=== PATIENT | male | born 1960 | race Caucasian/White ===

== ENCOUNTER 2017-02-28 23:25 | Emergency (ER) | payer OTHER ==
[~2017-02-28 23:25] MED LIST: ACETAMINOPHEN/H1 TAB PO; DOXYCYCLINE100 M3; IBUPROFEN800 MG; KEFLEX500 MG PO; LOSARTAN POTASS50 MG PO; MULTIVITAMIN1 TAB PO; PROAIR HFA0.09 MG/Ac INH; TRIAMCINOL0.1 %/453 TOP
--- NOTE | 2017-02-28 23:32 | ED GENERAL ADULT ---
History of Present Illness General Chief Complaint: General Adult Stated Complaint: ? FB (?MEAT) STUCK IN THROAT PER PT Source: patient Exam Limitations: no limitations Vital Signs & Intake/Output Vital Signs & Intake/Output Vital Signs Date Time Temp Pulse Resp B/P B/P Pulse O2 O2 Flow FiO2 Mean Ox Delivery Rate 03/01 0101 97.8 69 18 148/82 98 Room Air 03/01 0020 Room Air 02/28 2347 97.6 68 18 154/84 98 Room Air Allergies Coded Allergies: acetaminophen (From PERCOCET) (Mild, ITCHING 02/28/17) doxycycline (Mild, NAUSEA 02/28/17) oxycodone (From PERCOCET) (Mild, ITCHING 02/28/17) Reconcile Medications Albuterol Sulfate (Proair Hfa) 0.09 MG/Actuation MARY 1-2 PUFF INH Q4-6 PRN PRN ASTHMA (Reported) HYDROCODONE/ACETAMINOPHEN (Hydrocodon-Acetaminophen 5-325) 1 EACH TABLET 1-2 TAB PO Q4-6 PRN PRN PAIN SCALE 5-7 Losartan Potassium 50 MG TABLET 1 TAB PO DAILY BP (Reported) Multivitamin (Multiple Vitamins) 1 EACH TABLET 1 TAB PO DAILY SUPPLEMENT ( Reported) Triage Nurses Notes Reviewed? yes Onset: Abrupt Duration: hour(s): Timing: recent history Injury Environment: home Severity: moderate Modifying Factors: Worsens With: other (UNABLE TO HOLD DOWN FLUIDS). Associated Symptoms: SPITTING UP FLUIDS AFTER HE DRINKS HPI: 56-year-old gentleman presents with the sensation of food impaction in his distal esophagus. He states that he was eating pork. He felt the pork get stuck in his esophagus. This occurred around dinner time. Since then he has been spitting up water. He is also had difficulty swallowing his secretions. He has no fever chills chest pain shortness of breath. He is otherwise well and has no other concerns. Past History Medical History Any Pertinent Medical History? 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 No Review of Systems Review of Systems Constitutional: Reports: no symptoms. EENTM: Reports: no symptoms. Respiratory: Reports: no symptoms. Cardiovascular: Reports: no symptoms. GI: Reports: no symptoms. Genitourinary: Reports: no symptoms. Musculoskeletal: Reports: no symptoms. Skin: Reports: no symptoms. Neurological/Psychological: Reports: no symptoms. Hematologic/Endocrine: Reports: no symptoms. Immunologic/Allergic: Reports: no symptoms. All Other Systems: Reviewed and Negative Physical Exam Physical Exam General Appearance: well developed/nourished, mild distress Head: atraumatic, normal appearance Eyes: Bilateral: normal appearance. Ears, Nose, Throat: normal pharynx, normal ENT inspection Neck: normal inspection, supple, full range of motion Respiratory: normal breath sounds, chest non-tender, no respiratory distress, quiet respiration, lungs clear Cardiovascular: regular rate/rhythm Gastrointestinal: normal bowel sounds, soft, non-tender Back: normal inspection Extremities: normal inspection, normal capillary refill, normal range of motion Neurologic/Psych: no motor/sensory deficits, awake, alert, oriented x 3 Skin: intact, normal color, warm/dry Core Measures ACS in differential dx? No CVA/TIA Diagnosis: No Severe Sepsis Present: No Septic Shock Present: No Progress Differential Diagnoses I considered the following diagnoses in my evaluation of the patient: Esophageal food impaction versus foreign body versus other Plan of Care: Patient given glucagon 1 mg IV. I checked upon patient subsequently at 15 minute intervals. After approximately one hour, he was able to swallow fluids without problem. The sensation of the foreign body had improved dramatically. He was able to ambulate without problem. He never vomited during his entire ED stay. I believe she is safe for discharge. She wishes to go home. I referred him to gastroenterology. Initial ED EKG: none Departure Departure Disposition: HOME OR SELF CARE Condition: Stable Clinical Impression Primary Impression: Esophageal obstruction due to food impaction Referrals: PATIENT HAS NO PRIMARY CARE DR (PCP/Family) Departure Forms: Customer Survey General Discharge Information Comments 03/01/17, 0:51.... PT TOLERATING FLUIDS AFTER GLUCAGON.... NO VOMITING/NO SPITTING UP... PT FEELS COMFORTABLE GOING HOME... PT REFERRED TO GI FOR FOLLOW UP. Critical Care Note Critical Care Note Critical Care Time: non-applicable
[2017-03-01 01:01] VITALS: BP 148/82
[2017-03-01] MEDS ORDERED: LOSARTAN POTASS25 M1 PO (13:04)
== END 2017-03-01 01:01 ==
LOC: ERH 23:25
DX: K22.2 Esophageal obstruction (principal)
CPT/HCPCS: 96374; J1610

== ENCOUNTER 2017-03-01 09:16 | Emergency (ER) | payer OTHER ==
[~2017-03-01] VITALS: Ht 175.3 cm; Wt 88.0 kg
--- NOTE | 2017-03-01 10:11 | ED GENERAL ADULT ---
History of Present Illness General Chief Complaint: General Adult Stated Complaint: SEEN HERE LAST PM FOR FB IN THROAT Source: patient, old records Exam Limitations: no limitations Vital Signs & Intake/Output Vital Signs & Intake/Output Vital Signs Date Time Temp Pulse Resp B/P B/P Pulse O2 O2 Flow FiO2 Mean Ox Delivery Rate 03/01 1507 95.4 68 18 135/67 99 Room Air 03/01 1300 98.9 74 18 146/70 99 Room Air 03/01 0925 99.4 75 15 148/77 99 Room Air Room Air Allergies Coded Allergies: acetaminophen (From PERCOCET) (Mild, ITCHING 03/01/17) doxycycline (Mild, NAUSEA 03/01/17) oxycodone (From PERCOCET) (Mild, ITCHING 03/01/17) Reconcile Medications Albuterol Sulfate (Proair Hfa) 0.09 MG/Actuation MARY 1-2 PUFF INH Q4-6 PRN PRN ASTHMA (Reported) HYDROCODONE/ACETAMINOPHEN (Hydrocodon-Acetaminophen 5-325) 1 EACH TABLET 1-2 TAB PO Q4-6 PRN PRN PAIN SCALE 5-7 Losartan Potassium 50 MG TABLET 1 TAB PO DAILY BP (Reported) Losartan Potassium 25 MG TABLET 25 MG PO DAILY HYPERTENSION (Reported) Multivitamin (Multiple Vitamins) 1 EACH TABLET 1 TAB PO DAILY SUPPLEMENT ( Reported) Triage Note: PT TO ED C/C OF PIECE OF MEAT STUCK IN THROAT SINCE LAST NIGHT. SEEN HERE LAST NIGHT FOR SAME AND WAS CLEARED FOR DC. PT RETURNS WITH SAME COMPLAINTS, BUT UNABLE TO KEEP FOOD OR DRINK DOWN. DENIES DIFFICULTY BREATHING. Triage Nurses Notes Reviewed? yes Onset: Abrupt Duration: hour(s):, constant, continues in ED Timing: single episode today Severity: moderate HPI: Patient presents for evaluation of "something stuck in my throat". Patient states he was evaluated last night for what was likely a piece of pork stuck in the esophagus. He states that he was given a medication and then was able to drink water once but then with a subsequent attempt vomited. He states he tried drinking fluids again today but states it "came back up". He has a foreign body sensation in the throat and is concerned that there is something still there. Past History Travel History Traveled to [place] past 21 day No Medical History Any Pertinent Medical History? 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 No Review of Systems Review of Systems Constitutional: Reports: no symptoms. EENTM: Reports: no symptoms. Respiratory: Reports: no symptoms. Cardiovascular: Reports: no symptoms. GI: Reports: see HPI. Genitourinary: Reports: no symptoms. Musculoskeletal: Reports: no symptoms. Skin: Reports: no symptoms. Neurological/Psychological: Reports: no symptoms. Hematologic/Endocrine: Reports: no symptoms. Immunologic/Allergic: Reports: no symptoms. All Other Systems: Reviewed and Negative Physical Exam Physical Exam General Appearance: SEE BELOW Comments: Gen.: Well-nourished, well-developed, no acute respiratory distress. Head: Normocephalic, atraumatic. Eyes: Normal inspection bilaterally Ears: Normal inspection bilaterally Nose: Normal inspection Throat/mouth : Moist mucosa Neck: Supple, full range of motion, no goiter Heart: Regular rate and rhythm, no murmurs rubs or gallops Lungs: Clear to auscultation bilaterally with normal air entry Chest: Nontender Back: Normal range of motion Abdomen: Soft, nontender, nondistended, normal bowel sounds Extremities: Normal range of motion grossly, equal radial pulses, no cyanosis clubbing or edema Neurologic: Cranial nerves grossly intact, speech is clear Skin: warm and dry Psychiatric: Calm, cooperative, no apparent delusions or hallucinations Core Measures ACS in differential dx? No CVA/TIA Diagnosis: No Severe Sepsis Present: No Septic Shock Present: No Progress Differential Diagnoses I considered the following diagnoses in my evaluation of the patient: Esophageal food impaction, Zenker's diverticulum, esophageal cancer, dysmotility syndrome Plan of Care: Orders Procedure Date/time Status PATHOLOGY SPECIMEN 03/01 1516 Active Saline Lock 03/01 1226 Active Initial ED EKG: none Comments: 03/01/2017 12:25:50 PM I have updated Nathan on his CAT scan report and have discussed this case with Dr. Albert. Dr. Albert will perform an endoscopy shortly. Departure Departure Disposition: HOME OR SELF CARE Condition: Stable Clinical Impression Primary Impression: Food impaction of esophagus Qualifiers: Encounter type: initial encounter Qualified Code: T18.128A - Food in esophagus causing other injury, initial encounter Referrals: PATIENT HAS NO PRIMARY CARE DR (PCP/Family) Additional Instructions: Liquid diet for today and then advance as tolerated. Follow-up with Dr. Albert as discussed with him. Notify your primary care doctor of this emergency department visit and treatment plan. Return if any concerns or sudden worsening. Thank you for choosing the [facility] Emergency Department for your care. It was a pleasure to serve you today. Harinder Granados M.D. [facility] Departure Forms: Customer Survey General Discharge Information Critical Care Note Critical Care Note Critical Care Time: non-applicable
--- NOTE | 2017-03-01 11:18 | CT SCAN REPORT ---
EXAMINATION: CT CHEST WITHOUT CONTRAST CLINICAL INFORMATION: Unable to swallow liquids, question esophageal foreign body COMPARISON: 05/31/2015 TECHNIQUE: Multidetector volumetric CT imaging of the chest was done. Axial MIP volume rendering provided. Sagittal and coronal reformatted images were obtained. DLP: 238.66 mGy-cm FINDINGS: LUNGS: There are multiple scattered calcified granulomas bilaterally. No region of consolidation. Minimal bibasilar subsegmental atelectasis is noted. MEDIASTINUM: The visualized thyroid gland is unremarkable. The distal esophagus is mildly distended with debris; no radiodense foreign body is seen. No pneumomediastinum is seen. There are subcentimeter mediastinal lymph nodes within the range of normal variation. Cardiac size is within normal limits; no pericardial effusion. PLEURA: No pneumothorax or pleural effusion. No pleural mass or thickening. AXILLA: No lymphadenopathy. UPPER ABDOMEN: Patient is status post cholecystectomy. The spleen is mildly prominent in size, similar to prior. OSSEOUS STRUCTURES: Mild degenerative changes are present in the spine. IMPRESSION: 1. Mildly distended distal esophagus containing debris; no radiodense esophageal foreign body is seen; if clinically warranted, further assessment may be performed with an esophagram. 2. Scattered calcified pulmonary granulomas.
--- NOTE | 2017-03-01 11:51 | CT SCAN REPORT ---
EXAMINATION: CT NECK WITHOUT CONTRAST CLINICAL INFORMATION: Esophageal foreign body. COMPARISON: CT chest from the same day TECHNIQUE: CT scanning of the neck was performed without contrast. Coronal and sagittal reformatted images were generated. DLP: 575 mGy-cm FINDINGS: In the hypopharynx at the level of the cricoid cartilage there is a linear radiodense structure measuring approximately 9 mm craniocaudally. Just below this there is an additional punctate radiodensity which may be an additional luminal foreign body. There is no extraluminal air identified to suggest associated perforation. No cervical adenopathy. The oral cavity is unremarkable. The parotid and right submandibular gland appear unremarkable. The left submandibular gland is fatty atrophied. No sialolith is visualized. The thyroid is bulky and thyroid nodules are suspected. This could be further evaluated with thyroid ultrasound. No upper mediastinal adenopathy. The lung apices appear grossly clear. Please refer to the same day chest CT for intrathoracic details. The aortic arch appears normal in caliber. The orbits are normal. The imaged intracranial structures appear unremarkable. The cerebellar tonsils are normally positioned. No acute osseous abnormalities. There is mild mucosal thickening in the maxillary bases with retention cysts. The nasal cavity is clear without rightward nasal septal deviation and spurring. The mastoid air cells and middle ear cavities are clear. The temporal mid tibial joints articulate normally. Mild cervical spondylosis without high-grade canal stenosis. There is a mild cervicothoracic scoliosis. Several teeth are absent. There are scattered dental caries in the residual teeth some of which also demonstrates periodontal and periapical lucencies. IMPRESSION: 1. Linear density within the hypopharynx at the level of the cricoid cartilage, mostly reflective of the foreign body described in the history. Additional punctate density just below this may be an additional intraluminal foreign body. No evidence of extraluminal air to suggest perforation. 2. No cervical adenopathy. Chronic fatty atrophy of the left submandibular gland. Numerous dental caries. Bulky nodular thyroid. This could be further evaluated with thyroid ultrasound.
[2017-03-01] MEDS ORDERED: LOSARTAN POTASS25 M1 PO (13:04)
--- NOTE | 2017-03-01 13:48 | Proc Note Endoscopy ---
Endoscopy Procedure Medical History: unchanged (see paper chart) Mental Status: alert/oriented Heart/Lung Eval Prior to Sedation: within normal limits Candidate for Sedation? Yes Procedure Date: 03/01/17 Procedure Type: EGD w/biopsy Mat Linker: Huan Albert MD ASA Classification: III Indications: Dysphagia, foreign body removal. Instrument: diagnostic gastroscope Meds Received: MAC Patient's Tolerance: good Complications: none Extent Reached: second part of duodenum Procedure: After getting written informed consent the patient was prophylactically intubated and he was then placed in the left lateral decubitus position with pulse oximetry, cardiac monitoring, and supplemental oxygen given. A bite block was inserted and IV sedation was given until the desired effect was achieved. A high definition upper Olympus endoscope was then inserted into the mouth and advanced to the lower esophagus at which point a food bolus was encountered which was able to be pushed into the stomach using gentle pressure with the endoscope. The scope was then able to be advanced to the second portion of the duodenum with little difficulty. Retroflexed views and photodocumentation was obtained. Findings: Esophagus: The esophageal mucosa was grossly normal in appearance. As stated in the procedure section of this report a food bolus was encountered at the GE junction at approximately 38 cm from the incisors and this was able to be pushed down into the stomach with minimal resistance. After the food bolus was removed the underlying mucosa was markedly erythematous and bloody, but there were no obvious strictures or masslike lesions appreciated and the upper endoscope was easily able to traverse the GE junction without any significant resistance. Stomach: The gastric mucosa was atrophic in appearance, but there were no ulcers , erosions, or masses appreciated. Distention and peristalsis of the stomach appeared normal. Retroflexed views revealed a small hiatal hernia and the previously removed food bolus. Random biopsies were obtained from the antrum with cold biopsy forceps and were sent to pathology for further evaluation. Duodenum: The duodenal bulb was mildly erythematous, but there were no ulcers or erosions appreciated. Within the second portion of the duodenum there was one focal area of abnormal-appearing mucosa which extended across 3-4 folds and took up approximately three quarters of the lumen, but it was not circumferential and there were no obvious masslike lesions appreciated. The folds in this area did not reveal any normal-appearing villi and it appeared scalloped, but there are no obvious ulcerations appreciated. Biopsies were obtained from this area with cold biopsy forceps and were sent to pathology for further evaluation. Impression: 1. Food bolus and GE junction without obvious stricture or mass status post removal by pushing the food bolus into the stomach with the endoscope. 2. Small hiatal hernia. 3. Atrophic gastritis. 4. Focal area of abnormal scalloped small bowel mucosa/folds status post biopsies. Recommendations: 1. He was asked to stay on a soft solid diet for the next 24-48 hours and then advance as tolerated. 2. He should follow an antireflux regimen. 3. He should follow up the pathology results me as an outpatient. 4. He was asked to follow-up in the office in 1-2 weeks' time to review the results of the biopsies and give consideration for further diagnostic or therapeutic interventions. CC: LEO MAST,RODERICK
[2017-03-01 15:42] VITALS: BP 144/82
== END 2017-03-01 15:45 ==
LOC: ERH 09:16
DX: T18.128A Food in esophagus causing other injury, initial encounter (principal); D13.2 Benign neoplasm of duodenum; K44.9 Diaphragmatic hernia without obstruction or gangrene
CPT/HCPCS: 88305; 88312